=== PATIENT | male | born 1990 | race Two or more races ===

== ENCOUNTER 2018-08-17 16:26 | Emergency (ER) | payer BC, OTHER ==
[~2018-08-17] VITALS: Ht 182.9 cm; Wt 120.2 kg
[2018-08-17 16:44] VITALS: BP 148/102
[2018-08-17 18:08] LABS: Hepatitis B Surface Antibody Positive
[2018-08-17 18:23] LABS: Hepatitis B Surface Antigen Negative (Negative)
== END 2018-08-17 17:20 | disposition home or self-care (01) ==
LOC: ER 16:30
DX: Z77.21 Contact with and (suspected) exposure to potentially hazardous body fluids (principal); I10 Essential (primary) hypertension
CPT/HCPCS: 36415; 86703; 86706; 86803; 87340

== ENCOUNTER 2018-11-13 12:10 | Emergency (ER) | payer OTHER ==
[~2018-11-13] VITALS: Ht 182.9 cm; Wt 115.7 kg
[2018-11-13] MEDS ORDERED: ONDANSETRON HCL 4 MG/2 ML VIAL IV ONE ×2 (13:00→13:45)
[2018-11-13] MEDS ORDERED: KETOROLAC TROMETH 30 MG/ML 1ML VIAL IV ONE (13:00)
[2018-11-13] MEDS ORDERED: MORPHINE SULFATE 4 MG/ML SYR/VIAL IV ONE (13:00)
[2018-11-13] MEDS ORDERED: HYDROmorphone HCL 2 MG/ML VL IV ONE (13:45)
[2018-11-13 14:24] VITALS: BP 144/82
== END 2018-11-13 15:13 | disposition home or self-care (01) ==
LOC: ER 12:10
DX: M54.32 Sciatica, left side (principal); I10 Essential (primary) hypertension; Z90.89 Acquired absence of other organs
CPT/HCPCS: 72131; 94761; 96374; 96375; 99284; J1170; J1885; J2270; J2405

== ENCOUNTER 2019-09-12 16:49 | Emergency (ER) | payer OTHER ==
[~2019-09-12] VITALS: Ht 182.9 cm; Wt 120.2 kg
[2019-09-12 16:59] VITALS: BP 156/91
[2019-09-12] MEDS ORDERED: methylPREDNISolone SOD SUCC 125 MG/2 ML VL IM ONE (17:15)
[2019-09-12] MEDS ORDERED: KETOROLAC TROMETH 60MG/2ML VIAL IM ONE (17:15)
[2019-09-12] MEDS ORDERED: CYCLOBENZAPRINE HCL 10 MG TAB PO ONE (17:15)
== END 2019-09-12 18:04 | disposition home or self-care (01) ==
LOC: ER 16:50
DX: G89.29 Other chronic pain (principal); M54.5 Low back pain; M48.061 Spinal stenosis, lumbar region without neurogenic claudication; I10 Essential (primary) hypertension; Z90.89 Acquired absence of other organs
CPT/HCPCS: 96372; 99283; J1885; J2930

== ENCOUNTER 2023-02-13 14:45 | Emergency (ER) | payer OTHER ==
[~2023-02-13] VITALS: Ht 182.9 cm; Wt 120.0 kg
[2023-02-13] MEDS ORDERED: methylPREDNISolone SOD SUCC 125 MG/2 ML VL IM ONE (15:00)
[2023-02-13] MEDS ORDERED: KETOROLAC TROMETH 30 MG/ML 1ML VIAL IM ONE (15:00)
[2023-02-13 15:11] VITALS: BP 127/89
== END 2023-02-13 15:21 | disposition home or self-care (01) ==
LOC: ER 14:45 → EEVIPCON 14:45 → ER 15:21
DX: G89.29 Other chronic pain (principal); M54.59 Other low back pain; I10 Essential (primary) hypertension; Z90.89 Acquired absence of other organs
CPT/HCPCS: 96372; 99284; J1885; J2930